=== PATIENT | female | born 1995 | race Caucasian/White ===

== ENCOUNTER 2017-08-23 21:26 | Emergency (ER) | payer BC ==
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
[2017-08-23] MEDS ORDERED: Silver Sulfadiazine 1% Crm 20 GM Tube TOP ONE (21:59)
[2017-08-23 23:11] VITALS: BP 127/92
== END 2017-08-23 22:20 | disposition home or self-care (01) ==
LOC: LL.ED 21:26
DX: T24.211A Burn of second degree of right thigh, initial encounter (principal); X10.2XXA Contact with fats and cooking oils, initial encounter; Z91.030 Bee allergy status; Z91.040 Latex allergy status; Z88.5 Allergy status to narcotic agent
CPT/HCPCS: 16020; 99283; A9270-GY